=== PATIENT | female | born 1960 | race Caucasian/White ===

== ENCOUNTER 2023-07-22 15:26 | Inpatient (IN) | payer OTHER, SELFPAY ==
[~2023-07-22 15:26] MED LIST: Iopamidol 370 76% 100 ML VIAL ONE
[2023-07-22 16:45] LABS: #Basophils 0.1 10x3/uL (0.0-0.2); #Eosinphils 0.3 10x3/uL (0.0-0.5); #Monocytes 0.7 10x3/uL (0.0-1.1); #Neutrophils 7.1 10x3/uL (1.5-8.4); %Eosinophils 2.7 % (0.0-6.0); %Lymphocytes 21.2 % (18.0-47.0); %Monocytes 6.5 % (0.0-10.0); %Neutrophils 68.3 % (40.0-75.0); Hematocrit 46.8 % (34.9-44.5); Hemoglobin 16.4 g/dL (12.0-15.5); Mean Corpuscular Hemoglobin 31.2 pg (27.0-33.0); Mean Platelet Volume 11.1 fl (7.4-10.4); Platelet Count 207 10x3/uL (150-450); RBC Distribution Width 12.4 % (11.5-14.5); Red Blood Cell (RBC) Count 5.26 10x6/uL (3.90-5.03); White Blood Cell (WBC) Count 10.4 10x3/uL (3.5-10.5)
[2023-07-22 16:59] LABS: ALT (SGPT) 43 U/L (8-55); AST (SGOT) 31 U/L (5-34); Albumin 4.3 g/dL (3.4-4.8); Alkaline Phosphatase 49 U/L (40-110); Anion Gap 14 mmol/L (10-20); BUN (Urea Nitrogen) 20 mg/dL (9.8-20.1); Bilirubin, Total 0.6 mg/dL (0.2-1.2); Calc. Creatinine Clearance 0 mL/min (70-130); Calcium 9.3 mg/dL (7.8-10.44); Carbon Dioxide 22 mmol/L (23-31); Chloride 107 mmol/L (98-107); Estimated GFR 70; Globulin 3.3 g/dL (2.4-3.5); Glucose 122 mg/dL (80-115); Potassium 4.1 mmol/L (3.5-5.1); Protein, Total 7.6 g/dL (5.8-8.1); Sodium 139 mmol/L (136-145)
[2023-07-22 17:05] LABS: Troponin I Less than 0.010 ng/mL (< 0.028)
[2023-07-22 19:36] LABS: Lactic Acid 2.4 mmol/L (0.5-2.2)
[2023-07-22] MEDS ORDERED: Senokot S 8.6-50 MG TAB PO PRN (19:58)
[2023-07-22] MEDS ORDERED: Calcium Carbonate 500 MG ChewTAB PO PRN (19:58)
[2023-07-22] MEDS ORDERED: Ondansetron PF 4 MG/2 ML Vial IVP PRN (19:58)
[2023-07-22] MEDS ORDERED: HYDROcodone/Acetaminophen 5/325 mg Tablet PO PRN (19:58)
[2023-07-22] MEDS ORDERED: Acetaminophen 325 MG TAB PO PRN (19:58)
[2023-07-22] MEDS ORDERED: Enoxaparin 120 MG/0.8 ML SYRINGE SC ONE (20:09)
[2023-07-22 20:12] LABS: Troponin I Less than 0.010 ng/mL (< 0.028)
[2023-07-22 22:46] LABS: Troponin I Less than 0.010 ng/mL (< 0.028)
[2023-07-22 23:36] VITALS: BMI 45.5
[2023-07-23] MEDS: Venlafaxine HCl XR 75 MG CAP PO SCH ×2 (00:04→21:23)
[2023-07-23] MEDS: Pantoprazole 40 MG VIAL IVP SCH (00:05)
[2023-07-23 05:05] LABS: #Basophils 0.1 10x3/uL (0.0-0.2); #Eosinphils 0.3 10x3/uL (0.0-0.5); #Monocytes 0.7 10x3/uL (0.0-1.1); %Basophils 1.2 % (0.0-2.0); %Lymphocytes 32.2 % (18.0-47.0); %Monocytes 8.6 % (0.0-10.0); %Neutrophils 53.6 % (40.0-75.0); Hematocrit 41.2 % (34.9-44.5); Hemoglobin 13.8 g/dL (12.0-15.5); Mean Corpuscular HGB CONC 33.5 g/dL (32.0-36.0); Mean Corpuscular Hemoglobin 29.8 pg (27.0-33.0); Mean Platelet Volume 11.2 fl (7.4-10.4); Platelet Count 162 10x3/uL (150-450); RBC Distribution Width 12.7 % (11.5-14.5); Red Blood Cell (RBC) Count 4.63 10x6/uL (3.90-5.03); White Blood Cell (WBC) Count 7.5 10x3/uL (3.5-10.5)
[2023-07-23 05:15] LABS: Lactic Acid 1.3 mmol/L (0.5-2.2)
[2023-07-23 05:17] LABS: Anion Gap 13 mmol/L (10-20); BUN (Urea Nitrogen) 19 mg/dL (9.8-20.1); Calc. Creatinine Clearance 139 mL/min (70-130); Calcium 8.5 mg/dL (7.8-10.44); Carbon Dioxide 23 mmol/L (23-31); Chloride 108 mmol/L (98-107); Estimated GFR 87; Glucose 103 mg/dL (80-115); Sodium 140 mmol/L (136-145)
[2023-07-23] MEDS: Enoxaparin 120 MG/0.8 ML SYRINGE SC SCH (08:29)
[2023-07-23] MEDS ORDERED: Venlafaxine HCl XR 75 MG CAP PO SCH (09:00)
[2023-07-23] MEDS: SUMAtriptan Succinate 25 MG TAB PO SCH (14:04)
[2023-07-23] MEDS: SUMAtriptan Succinate 50 MG TAB PO PRN (17:59)
[2023-07-23] MEDS: CO Q-10 CAPSULE 50 MG PO SCH (21:20)
[2023-07-23] MEDS: Divalproex Sodium 250 MG (DR) TAB PO SCH (21:21)
[2023-07-24] MEDS: Cholecalciferol 1,000 UNITS (25 MCG) TAB PO SCH (09:36)
[2023-07-24] MEDS: Ascorbic Acid 500 mg Chewable Tablet PO SCH (09:36)
[2023-07-25 03:47] LABS: #Basophils 0.1 10x3/uL (0.0-0.2); #Eosinphils 0.3 10x3/uL (0.0-0.5); #Monocytes 0.7 10x3/uL (0.0-1.1); #Neutrophils 3.8 10x3/uL (1.5-8.4); %Basophils 1.2 % (0.0-2.0); %Eosinophils 4.2 % (0.0-6.0); %Lymphocytes 34.6 % (18.0-47.0); %Monocytes 9.2 % (0.0-10.0); %Neutrophils 50.4 % (40.0-75.0); Hematocrit 43.6 % (34.9-44.5); Hemoglobin 14.9 g/dL (12.0-15.5); Mean Corpuscular HGB CONC 34.2 g/dL (32.0-36.0); Mean Corpuscular Hemoglobin 30.7 pg (27.0-33.0); Mean Corpuscular Volume 89.7 fl (81.6-98.3); Mean Platelet Volume 11.3 fl (7.4-10.4); Platelet Count 159 10x3/uL (150-450); RBC Distribution Width 12.2 % (11.5-14.5); Red Blood Cell (RBC) Count 4.86 10x6/uL (3.90-5.03); White Blood Cell (WBC) Count 7.4 10x3/uL (3.5-10.5)
[2023-07-25 04:19] LABS: Anion Gap 15 mmol/L (10-20); BUN (Urea Nitrogen) 16 mg/dL (9.8-20.1); Calc. Creatinine Clearance 129 mL/min (70-130); Calcium 8.6 mg/dL (7.8-10.44); Carbon Dioxide 25 mmol/L (23-31); Chloride 104 mmol/L (98-107); Estimated GFR 80; Glucose 90 mg/dL (80-115); Potassium 4.1 mmol/L (3.5-5.1); Sodium 140 mmol/L (136-145)
[2023-07-25 11:08] VITALS: BP 136/84; TEMP 97.9
== END 2023-07-25 12:00 | disposition home or self-care (01) | DRG 176 ==
LOC: CSHERS 15:26 → CSHTELE 19:39 → OBSVTOIN 07-24 12:24
PROVIDERS: ADMIT Student in an Organized Health Care Education/Training Program; ATTEND Internal Medicine
DX: I26.94 Multiple subsegmental thrombotic pulmonary emboli without acute cor pulmonale (principal); E87.20 Acidosis, unspecified; D68.69 Other thrombophilia; Z68.42 Body mass index [BMI] 45.0-49.9, adult; G43.909 Migraine, unspecified, not intractable, without status migrainosus; I10 Essential (primary) hypertension; K21.9 Gastro-esophageal reflux disease without esophagitis; E66.01 Morbid (severe) obesity due to excess calories; E83.119 Hemochromatosis, unspecified; F41.9 Anxiety disorder, unspecified; F32.A Depression, unspecified; Z86.718 Personal history of other venous thrombosis and embolism; Z88.2 Allergy status to sulfonamides; Z79.899 Other long term (current) drug therapy; Z98.890 Other specified postprocedural states; Z90.89 Acquired absence of other organs; Z87.891 Personal history of nicotine dependence
CPT/HCPCS: 36415; 71045; 71275; 80048; 80053; 83605; 83880; 84484; 85025; 93005; 93306; 94760; 94762; 96372; C9113; J1650

== ENCOUNTER 2024-03-16 12:11 | Outpatient (CLI) | payer OTHER | END 2024-03-16 12:12 | disposition home or self-care (01) | LOC: CSHMAMMO 12:11 | PROVIDERS: ATTEND Student in an Organized Health Care Education/Training Program | DX: Z12.31 Encounter for screening mammogram for malignant neoplasm of breast (principal); Z80.3 Family history of malignant neoplasm of breast | CPT/HCPCS: 77063; 77067 ==